=== PATIENT | male | born 1975 | race Caucasian/White ===

== ENCOUNTER 2021-08-23 11:03 | Emergency (ER) | payer MEDICAID, SELFPAY ==
[2021-08-23 11:05] VITALS: BP 147/103; PULSE 76; RESP 16; TEMP 36.6; O2SAT 76; BMI 23.6
--- NOTE | 2021-08-23 11:42 | CT_ITS ---
STUDY: CT BRAIN WITHOUT CONTRAST REASON FOR EXAM: Male, 46 years old. headache RADIATION DOSAGE (If Supplied By Facility): CTDIvol = ( 44.99 ) mGy, DLP = ( 812.98 ) mGycm TECHNIQUE: Transaxial CT imaging of the brain was performed without administration of intravenous contrast material. Individualized dose optimization techniques were used for this CT. COMPARISON: No relevant priors. FINDINGS: Normal soft tissue structures. Normal calvarium. Normal size ventricles and extra-axial spaces for the patient''s age. Normal white matter tracts of the cerebral hemispheres. Normal basal ganglia and thalami. Normal brainstem. Normal cerebellum. There is no intracranial hemorrhage. There are no findings of an acute ischemic infarction. Normal visualized paranasal sinuses. CT/Brain/Head without Contrast IMPRESSION: Normal unenhanced CT scan of the brain. Electronically Signed: Cody Martinez MD at 12:51 EST Tel , Service support ,
--- NOTE | 2021-08-23 11:42 | RAD_ITS ---
STUDY: X-RAY - FACIAL BONES REASON FOR STUDY: Male, 46 years old. facial pain TECHNIQUE: 3 view(s) of the facial bones. COMPARISON: None. FINDINGS: Normal bilateral frontozygomatic and zygomatic-temporal arches. Normal bilateral medial and inferior orbital cunningham. Normal bilateral orbits. Normal visualized nasal bones. Normal anterior nasal spine. The remaining visualized osseous structures are normal. Normal visualized paranasal sinuses. RAD/Facial Bones min 3 Views IMPRESSION: Normal x-ray examination of the facial bones. Electronically Signed: Cody Martinez MD at 12:44 EST Tel , Service support ,
--- NOTE | 2021-08-23 11:42 | CT_ITS ---
STUDY: CT CERVICAL SPINE WITHOUT CONTRAST REASON FOR EXAM: Male, 46 years old. neck pain RADIATION DOSAGE (If Supplied By Facility): CTDIvol = ( 25.25 ) mGy, DLP = ( 525.02 ) mGycm TECHNIQUE: High resolution transaxial imaging was performed without contrast material. Sagittal and coronal images were reconstructed. Individualized dose optimization techniques were used for this CT. COMPARISON: None FINDINGS: Normal craniovertebral junction. Normal anterior atlantoaxial articulation. Normal odontoid process. Normal cervical lordosis. Normal vertebral bodies and posterior osseous elements. C2-3: Normal endplates. Normal disc height and morphology. Normal central canal and intervertebral neuroforamina. C3-4: Normal endplates. Normal disc height and morphology. Normal central canal and intervertebral neuroforamina. C4-5: Normal endplates. Normal disc height and morphology. Normal central canal and intervertebral neuroforamina. C5-6: Normal endplates. Normal disc height and morphology. Normal central canal and intervertebral neuroforamina. C6-7: Mild broad disc osteophyte complex and bilateral vertebral hypertrophy produces mild spinal stenosis and moderate bilateral neural foraminal stenosis. C7-T1: Normal endplates. Normal disc height and morphology. Normal central canal and intervertebral neuroforamina. Normal visualized soft tissue structures. CT/Spine Cervical without Contras IMPRESSION: Focal degenerative disc disease at C6-C7 as described above. Electronically Signed: Cody Martinez MD at 12:54 EST Tel , Service support ,
--- NOTE | 2021-08-23 11:42 | RAD_ITS ---
STUDY: X-RAY CHEST REASON FOR EXAM: Male, 46 years old. fatigue TECHNIQUE: Single AP portable view of the chest. COMPARISON: None. FINDINGS: The lungs are clear and expanded. There is no demonstrated pleural abnormality. Normal size heart. Normal mediastinum and leela. Normal visualized pulmonary arteries. Normal visualized aortic arch and descending thoracic aorta. Normal visualized thoracic spine. Normal visualized ribs, clavicles, and shoulders. There is no demonstrated abnormality of the visualized soft tissue structures of the upper abdomen. RAD/Chest 1 View (Portable) IMPRESSION: Normal x-ray examination of the chest. Electronically Signed: Cody Martinez MD at 12:33 EST Tel , Service support ,
--- NOTE | 2021-08-23 11:43 | EKG12_ITS ---
Test Reason : Blood Pressure : / mmHG Vent. Rate : 065 BPM Atrial Rate : 065 BPM P-R Int : 122 ms QRS Dur : 092 ms QT Int : 396 ms P-R-T Axes : 008 036 027 degrees QTc Int : 411 ms Normal sinus rhythm Normal ECG Confirmed by TESSA ASIF, RANDI ([id number]), editor & co founder ROMARIO VALERO ([id number]) on 08/24/2021 1:05:31 PM Referred By: NAYELI Confirmed By:RANDI ZARATE MD
--- NOTE | 2021-08-23 11:46 | EDS_ITS ---
HPI History of Present Illness Chief Complaint: Headache Narrative Narrative: 46-year-old male with history of Graves' disease currently not taking his methimazole for about 4 to 5 months. Patient states that he had very high thyroid levels when he started. He states that the methimazole taste like poison going down and he does not want to take it because it makes him sick. He reports that over the last 4 to 5 months he has noticed that his right eye feels irritated and is watering more frequently. He states that this drains into his right nostril and his right nostril is constantly draining. Patient also states that he has a headache which feels like pressure throughout his head but also focally behind his right eye. He reports that it feels like he hears ticking in his ears. Patient feels like the pressure radiates into his neck. Patient states that he has been taking cold medicine with Tylenol and it as well as taking supplemental doses of Tylenol and has been probably taking more than recommended dosage. He is also taking more than recommend dosage of ibuprofen which is upsetting his stomach. [facility] Medical History (Updated 08/23/21 @ 11:15 by Sunday Jack) Graves disease Hyperthyroidism Allergy/AdvReac Type Severity Reaction Status Date / Time sertraline [From Zoloft] Allergy Hives Verified 08/23/21 11:05 Social History Smoking Status: Current every day smoker tobacco type: e-cigarettes and smokeless tobacco ROS ROS ED Constitutional Constitutional ED: Denies chills or fever(s) Eyes Eyes: Reports other Details: Right eye watering right nostril rhinorrhea ; Denies blurry vision ENT ENT ED: Reports rhinorrhea; Denies sore throat Cardiovascular Cardiovascular: Denies chest pain or palpitations Respiratory/Chest Respiratory/Chest: Denies cough or dyspnea Gastrointestinal Gastrointestinal: Reports abdominal pain; Denies nausea or vomiting Genitourinary Genitourinary ED: Denies dysuria or hematuria Musculoskeletal Musculoskeletal: Denies arthralgias or myalgias Integumentary Denies rash Neurologic Neurologic: Reports headache(s); Denies paresthesias or weakness EXAM Physical Exam Const Vital Signs: 08/23/21 11:05 08/23/21 13:35 Temperature 97.9 F 98.4 F Temperature Source Temporal Pulse Rate 76 68 Respiratory Rate 16 16 Blood Pressure 147/103 H 135/72 H Blood Pressure Mean 117 Pulse Ox 76 97 Oxygen Delivery Method Room Air Positive well nourished General Appearance ED: NAD; Negative for pallor HEENT Reports normocephalic and moist mucous membranes atraumatic Eyes PERRL and EOMs intact bilaterally Resp normal respiratory effort and clear to auscultation bilaterally Cardio regular rate and regular rhythm Extremity normal to inspection and full ROM Neuro oriented x3, CN's II-XII intact bilaterally and no sensory deficits noted Sensorium / Orientation: awake and alert Motor Exam: strength 5/5 throughout Psych mental status grossly normal Skin General Skin Exam: Negative for jaundice or pallor MDM MDM MDM Narrative Medical decision making narrative: Patient presenting for evaluation after he has not taken his methimazole for the last 6 months secondary to not liking the taste of the medication and stating it tasted like poison. He states he was told by a friend who is a nurse that he might be in thyroid storm. I have a low suspicion for this based on his vitals and his heart rate is 76. His main complaint is of headache and neck pain as well as right eye watering and causing rhinorrhea to the right nostril. Patient also does state that he has some GI discomfort because he is been taking so much ibuprofen which is upset his stomach. He is also taking Tylenol which he is concerned he took too much of it. I did obtain blood work and his CBC is normal. CMP is also normal. Lipase negative. TSH was low at 0.01. Free T4 was 1.29 and free T3 is 4.4. The only elevation is the T3 and this is only mildly elevated. Salicylates were normal. Acetaminophen level was low. Urinalysis performed which was negative. I obtained an EKG which on my interpretation shows a sinus rhythm with a ventricular rate of 65 bpm without sign of ischemic change. Chest x-ray on my interpretation shows no acute cardiopulmonary process and the radiologist does agree. CT of the brain shows no acute intracranial process and a CT of the cervical spine shows degenerative changes at C6 and C7 without any other acute findings. Overall his work-up is normal and his thyroid is not that elevated. I do not believe he needs admitted or further work-up from the emergency room. He is counseled to follow-up with the primary care physician although he states that he does not have one any longer. He was given referral for primary care and he was also given Dr. Issa for follow-up for endocrinology. I also did recommend that since he has an ongoing eye watering problem without any sign of acute infection that he should follow-up with ophthalmology. Patient was amenable to this plan. He is discharged in stable condition. Impression: 1. Headache 2. Neck pain 3. History of Graves' disease 4. Abdominal pain 5. Right eye watering Lab Data Labs: Laboratory Results - last 24 hr 08/23/21 08/23/21 08/23/21 11:32 11:32 11:32 WBC 8.7 RBC 4.31 L Hgb 13.7 Hct 40.5 MCV 94.0 MCH 31.8 MCHC 33.8 RDW Std Deviation 43.0 RDW Coeff of Olive 12.4 Plt Count 268 MPV 9.0 Immature Gran % (Auto) 0.300 Neut % (Auto) 67.0 Lymph % (Auto) 22.4 [place] % (Auto) 6.9 Eos % (Auto) 2.6 Baso % (Auto) 0.8 Absolute Neuts (auto) 5.8 Absolute Lymphs (auto) 1.95 Nucleated RBC % 0 Sodium 140 Potassium 4.2 Chloride 104 Carbon Dioxide 30.0 Anion Gap 6 BUN 13 Creatinine 0.94 Estim Creat Clear Calc 95.00 Est GFR (MDRD) Af Amer 111 Est GFR (MDRD) Non-Af 92 BUN/Creatinine Ratio 13.8 Glucose 100 Calcium 9.0 Total Bilirubin 0.20 Direct Bilirubin 0.06 AST 10 L ALT 21 Alkaline Phosphatase 56 Troponin I High Sens 5 Total Protein 7.1 Albumin 3.5 Globulin 3.6 Albumin/Globulin Ratio 1.0 Lipase 134 TSH < 0.01 L Free T4 1.29 Free T3 pg/dL 4.4 H Urine Color Urine Clarity Urine pH Ur Specific [place] Urine Protein Urine Glucose (UA) Urine Ketones Urine Occult Blood Urine Nitrite Urine Bilirubin Urine Urobilinogen Ur Leukocyte Esterase Urine RBC Urine WBC Ur Squamous Epith Cells Urine Bacteria Urine Mucus Salicylates < 1.7 L Acetaminophen 4.1 L 08/23/21 12:00 WBC RBC Hgb Hct MCV MCH MCHC RDW Std Deviation RDW Coeff of [place] Plt Count MPV Immature Gran % (Auto) Neut % (Auto) Lymph % (Auto) [place] % (Auto) Eos % (Auto) Baso % (Auto) Absolute Neuts (auto) Absolute Lymphs (auto) Nucleated RBC % Sodium Potassium Chloride Carbon Dioxide Anion Gap BUN Creatinine Estim Creat Clear Calc Est GFR (MDRD) Af Amer Est GFR (MDRD) Non-Af BUN/Creatinine Ratio Glucose Calcium Total Bilirubin Direct Bilirubin AST ALT Alkaline Phosphatase Troponin I High Sens Total Protein Albumin Globulin Albumin/Globulin Ratio Lipase TSH Free T4 Free T3 pg/dL Urine Color Yellow Urine Clarity Clear Urine pH 7.0 Ur Specific [place] 1.010 Urine Protein Negative Urine Glucose (UA) Normal Urine Ketones Negative Urine Occult Blood Negative Urine Nitrite Negative Urine Bilirubin Negative Urine Urobilinogen Normal Ur Leukocyte Esterase Negative Urine RBC 0 SEEN Urine WBC 0 SEEN Ur Squamous Epith Cells 0 SEEN Urine Bacteria 0 SEEN Urine Mucus 0 SEEN Salicylates Acetaminophen Radiography Diagnostic Testing: Clinical Impression(s) from Imaging Studies Brain CT 08/23/21 11:42 IMPRESSION: Normal unenhanced CT scan of the brain. Electronically Signed: Cody Martinez MD at 12:51 EST Tel , Service support , Cervical Spine CT 08/23/21 11:42 IMPRESSION: Focal degenerative disc disease at C6-C7 as described above. Electronically Signed: Cody Martinez MD at 12:54 EST Tel , Service support , Chest X-Ray 08/23/21 11:42 IMPRESSION: Normal x-ray examination of the chest. Electronically Signed: Cody Martinez MD at 12:33 EST Tel , Service support , Facial Bones X-Ray 08/23/21 11:42 IMPRESSION: Normal x-ray examination of the facial bones. Electronically Signed: Cody Martinez MD at 12:44 EST Tel , Service support , Discharge Plan Triage Chief Complaint: Headache ED Provider: Lavon Asher Dx/Rx/DC Orders Instructions: Understanding Headache Pain, ED Hyperthyroidism Primary Care Provider: Care Physician,No Primary Referrals: Kiki Marte MD [STAFF PHYSICIAN] - As soon as possible Todd Issa MD [STAFF PHYSICIAN] - As soon as possible Care Physician,No Primary [Primary Care Provider] - Disposition Disposition: Home, Self Care Discharge Date/Time: 08/23/21 13:35
[2021-08-23 11:53] LABS: Absolute Lymphocyte Count 1.95 X10^3/uL (0.83-4.51); Absolute Neutrophil Count 5.8 X10^3/uL (2.0-7.7); Basophil# 0.07 X10^3/uL; Basophil% 0.8 % (0-1); Eosinophil# 0.23 X10^3/uL; Eosinophils% 2.6 % (0-5); Hematocrit 40.5 % (40-54); Hemoglobin 13.7 g/dL (13.0-16.5); Lymphocyte # 1.95 X10^3/ul (0.83-4.51); Lymphocyte % 22.4 % (19-41); Mean Corp Hgb Conc 33.8 g/dL (32-36); Mean Corpuscular Hgb 31.8 pg (27.0-32.0); Monocyte% 6.9 % (0-10); NRBC Flagged by Analyzer 0 % (0-5); Neutrophil # 5.84 X10^3/uL (2.7-7.7); Platelet Count 268 K/mm3 (150-450); RBC Distribution Width CV 12.4 % (11.6-14.6); Red Blood Count 4.31 M/mm3 (4.6-6.2); White Blood Count 8.7 K/mm3 (4.4-11.0)
[2021-08-23] MEDS: DiphenhydrAMINE 50 MG/ML Syringe 25 MG IV (11:57)
[2021-08-23] MEDS: Metoclopramide 10 MG/2 ML Vial IV (11:57)
[2021-08-23] MEDS: 0.9% Normal Saline 1,000 ML 1000 ML IV (11:57)
[2021-08-23 12:09] LABS: Bacteria 0 SEEN /hpf (None Seen); Mucous, Urine 0 SEEN /hpf (<or=2+); Red Blood Cells-Urine 0 SEEN /hpf (0-5); Squamous Epithelial Cells - UA 0 SEEN /hpf (0-5); White Blood Cells 0 SEEN /hpf (0-5)
[2021-08-23 12:15] LABS: Acetaminophen (Tylenol) Level 4.1 ug/mL (10.0-30.0); Salicylate < 1.7 mg/dL (2.8-20.0)
[2021-08-23 12:18] LABS: AST(SGOT) 10 U/L (15-37); Alanine Aminotransfer ALT/SGPT 21 U/L (16-61); Albumin, Serum 3.5 g/dL (3.2-5.0); Alkaline Phosphatase 56 U/L (45-117); Anion Gap 6 (5-15); BUN 13 mg/dL (7-18); BUN/Creat Ratio 13.8 RATIO (10-20); Bilirubin, Direct 0.06 mg/dL (0.00-0.30); Chloride 104 mmol/L (98-107); Creatinine, Serum 0.94 mg/dL (0.70-1.30); EST Glomerular Filtration Rate 92 mL/min (>60); Est Glom Filt Rate - Afr Amer 111 mL/min (>60); Free T3 4.4 pg/mL (2.18-3.98); Globulin 3.6 g/dL (2.2-4.2); Glucose 100 mg/dL (74-106); Lipase 134 U/L (73-393); Potassium 4.2 mmol/L (3.5-5.1); Protein, Total 7.1 g/dL (6.4-8.2); Sodium Level 140 mmol/L (136-145); T4 Free Direct 1.29 ng/dL (0.76-1.46); Thyroid Stim Hormone (TSH) < 0.01 uIU/mL (0.358-3.74); Troponin-I HS 5 pg/mL (3.0-78.0)
[2021-08-23 12:27] LABS: Color, Urine Yellow (Yellow); Glucose, Dipstick Normal (Normal); Ketone-Dipstick Negative (Negative); Leukocyte Esterase-Dipstick Negative /ul (Negative); Nitrite-Dipstick Negative (Negative); Occult Blood-Urine Negative /ul (Negative); Protein-Dipstick Negative (Negative); Urine Bilirubin Dipstick Negative (Negative); Urine Clarity Clear (Clear); Urine Urobilinogen Normal (Normal)
[2021-08-23] MEDS: Ketorolac 15 MG/ML Vial IV (13:32)
[2021-08-23 13:35] VITALS: BP 135/72; PULSE 68; RESP 16; TEMP 36.9; O2SAT 97
== END 2021-08-23 13:35 | disposition home or self-care (01) ==
PROVIDERS: Emergency Provider Student in an Organized Health Care Education/Training Program; Visit Provider Student in an Organized Health Care Education/Training Program
DX: R51.9 Headache, unspecified (principal); R10.9 Unspecified abdominal pain; J34.89 Other specified disorders of nose and nasal sinuses; H57.89 Other specified disorders of eye and adnexa; M54.2 Cervicalgia; E05.00 Thyrotoxicosis with diffuse goiter without thyrotoxic crisis or storm; Z91.14 Patient's other noncompliance with medication regimen; F17.290 Nicotine dependence, other tobacco product, uncomplicated
CPT/HCPCS: 70150; 70450; 71045; 72125; 80053; 80329; 81001; 82248; 83690; 84439; 84443; 84481; 84484; 85025; 87426; 93005; 96361; 96374; 96375; 99283; J7030; A4216; G0480

== ENCOUNTER 2023-08-02 18:47 | Inpatient (IN) | payer MEDICAID, SELFPAY ==
[2023-08-02 18:50] VITALS: BP 140/114; PULSE 83; RESP 18; TEMP 36.5; O2SAT 98; BMI 25.8
[2023-08-02 19:10] VITALS: BP 125/87; PULSE 67; RESP 16; TEMP 36.9; O2SAT 97
[2023-08-02 19:12] VITALS: BP 125/87; PULSE 66; RESP 14; TEMP 36.9; O2SAT 99
[2023-08-02 19:18] LABS: Absolute Lymphocyte Count 1.52 X10^3/uL (0.83-4.51); Absolute Neutrophil Count 4.5 X10^3/uL (2.0-7.7); Basophil# 0.05 X10^3/uL; Basophil% 0.8 % (0-1); Eosinophil# 0.03 X10^3/uL; Eosinophils% 0.5 % (0-5); Hematocrit 42.8 % (40-54); Hemoglobin 14.9 g/dL (13.0-16.5); Lymphocyte # 1.52 X10^3/ul (0.83-4.51); Lymphocyte % 23.2 % (19-41); Mean Corp Hgb Conc 34.8 g/dL (32-36); Mean Corpuscular Hgb 33.5 pg (27.0-32.0); Mean Corpuscular Volume 96.2 fL (80-94); Mean Platelet Vol. 9.2 fl (6.2-12.0); Monocyte# 0.42 X10^3/uL; Monocyte% 6.4 % (0-10); NRBC Flagged by Analyzer 0 % (0-5); Neutrophil # 4.51 X10^3/uL (2.7-7.7); Neutrophil % 68.8 % (47-70); Platelet Count 258 K/mm3 (150-450); RBC Distribution Width CV 12.3 % (11.6-14.6); RBC Distribution Width SD 43.6 fl (35.1-43.9); Red Blood Count 4.45 M/mm3 (4.6-6.2); White Blood Count 6.6 K/mm3 (4.4-11.0)
[2023-08-02 19:31] LABS: Bedside Glucose 169 mg/dL (74-106)
--- NOTE | 2023-08-02 19:33 | CT_ITS ---
EXAM: CT brain without contrast HISTORY: Trauma TECHNIQUE: No intravenous contrast. A radiation dose optimization technique was used for this scan. COMPARISON: Head CT August 23, 2021. LIMITATIONS: None. BRAIN: Normal tomlinson/white matter differentiation. VENTRICLES: No hydrocephalus. EXTRA-AXIAL SPACES: No acute hemorrhage. CALVARIUM/SKULL BASE: No acute fracture. FACE/SINUSES: Old fracture of the right orbit. SOFT TISSUES: Contusion of the right frontal scalp. OTHER: None. CONCLUSION: No acute intracranial abnormality. Electronically Signed: Adriel Evans MD at 21:00 EST , CT/Brain/Head without Contrast IMPRESSION: undefined
--- NOTE | 2023-08-02 19:35 | EKG12_ITS ---
Test Reason : DYSRHYTHMIA Blood Pressure : / mmHG Vent. Rate : 063 BPM Atrial Rate : 063 BPM P-R Int : 120 ms QRS Dur : 070 ms QT Int : 414 ms P-R-T Axes : 023 023 015 degrees QTc Int : 423 ms Normal sinus rhythm Junctional ST depression, probably abnormal Abnormal ECG Confirmed by TESSA ASIF, RANDI ([id number]), material expeditor RANDY CRAMER ([id number]) on 08/09/2023 8:17:43 AM Referred By: Confirmed By:RANDI ZARATE MD
[2023-08-02 19:36] LABS: Alcohol, Blood (Medical)-Serum < 3.0 mg/dL
--- NOTE | 2023-08-02 19:36 | EDS_ITS ---
HPI History of Present Illness Chief Complaint: Substance Abuse Narrative Narrative: 38-year-old male presents for detox from alcohol and benzodiazepines. He states he has past medical history of depression and anxiety and was taking up to 4 mg or more of benzodiazepines/Ativan. He last used on Tuesday. Additionally, he states his last drink was also on Tuesday. He would have at least 6-8 mixed drinks a day. He last went through rehab over a year ago, but never here at the hospital. He was at an outside facility in [facility] where they told him to come here for detox. He states that he is actively withdrawing, and when he was here, he went to the bathroom, then passed out suddenly. He sustained a laceration to his forehead. He states his tetanus immunization is up-to-date. He denies other injury. He presents for detox from alcohol and benzodiazepines. [facility] Medical History Graves disease Hyperthyroidism Allergy/AdvReac Type Severity Reaction Status Date / Time sertraline [From Zoloft] Allergy Hives Verified 08/02/23 18:50 Social History Smoking Status: Current every day smoker tobacco type: e-cigarettes and smokeless tobacco ROS ROS ED ROS Narrative Constitutional: No fever, no chills. HEENT: No sore throat. No neck pain. No loss of vision. No rhinorrhea. Laceration to forehead. Cardiovascular: No chest pain. No palpitations. No pedal edema. Respiratory: No cough, no shortness of breath. Abdominal: No abdominal pain. No nausea. No vomiting. Genitourinary: No dysuria. No hematuria. Musculoskeletal: No myalgias. No arthralgias. Neurologic: No headaches. No dizziness. No lightheadedness. Syncopal episode. Skin: No rash. No change in color. Psychiatric: Positive depression. No anxiety. EXAM Physical Exam Narrative Exam Narrative: Afebrile. Vital signs noted. GCS 15. ABCs intact. HEENT: Normocephalic. 1 cm laceration to mid forehead, irregular body close linear, no gaping, no active bleeding. PERRL, EOMI. Neck soft and supple. No point tenderness or step off. Cardiovascular: Regular rate and rhythm. No murmurs, rubs, or gallops appreciated. Respiratory: No tachypnea. Lungs clear to auscultation bilaterally. Gastrointestinal: Abdomen soft, nontender, with normoactive bowel sounds. No rebound or guarding. Neurological: Awake. Alert. Oriented. Able to raise arms above head without difficulty. Nonfocal, nonlateralizing. Skin: No rash. Normal color. No pallor. No tremors. No gooseflesh. Musculoskeletal: No pedal edema. Full range of motion extremities. Const Vital Signs: 08/02/23 18:50 08/02/23 19:10 08/02/23 19:12 Temperature 97.7 F L 98.4 F 98.4 F Temperature Source Temporal Oral Oral Pulse Rate 83 67 66 Respiratory Rate 18 16 14 Blood Pressure 140/114 H 125/87 H 125/87 H Blood Pressure Mean 122 99 99 Blood Pressure Source Monitor Blood Pressure Position Semi-Fowlers Blood Pressure Location Left Arm Pulse Ox 98 97 99 Oxygen Delivery Method Room Air Room Air Room Air MDM MDM MDM Narrative Medical decision making narrative: Nursing protocol orders were instituted for medical clearance for detox. [id number] glucose is appropriately elevated at 169. As he injured his head, his wound will be cleansed and Steri-Strips were applied as per his preference. Additionally, I do feel CT imaging is indicated given his closed head injury. EKG will be obtained for his syncopal episode. EKG was obtained and interpreted by myself independently as normal sinus rhythm at 63 bpm without ectopy or acute ST changes. No STEMI. QTc normal at 423 ms. I reviewed his laboratory work and he has a normal white count of 6.6, hemoglobin normal at 14.9, hematocrit 42.8 with platelet count normal at 258. Glucose is appropriately elevated at 141, with a normal anion gap of 8. Urine for drugs of abuse is negative. Ethanol level is also negative. There are no current signs of active withdrawal but the patient states he feels shaky. He is not tachycardic. I reviewed the CT imaging of the brain which shows no acute fracture or hemorrhage. At this point in time, his wound will be cleansed and Steri-Strips applied. I discussed the patient with Dr. Mendoza with hospitalist medicine for admission. I have deferred phenobarbital to the hospitalist. I do not feel Ativan is indicated as he is trying to wean himself off of them and wants detox from benzodiazepines, and additionally he had a closed head injury initially. Disposition is admit in stable condition. History & Record Review Discussion w/independent historian: Patient Additional record(s) reviewed:: Prior ED visit (Noncontributory to current chief complaint) Lab Data Attestation: I reviewed the patient's lab results. Labs: Laboratory Results - last 24 hr 08/02/23 08/02/23 08/02/23 19:10 19:12 19:46 WBC 6.6 RBC 4.45 L Hgb 14.9 Hct 42.8 MCV 96.2 H MCH 33.5 H MCHC 34.8 RDW Std Deviation 43.6 RDW Coeff of Olive 12.3 Plt Count 258 MPV 9.2 Immature Gran % (Auto) 0.300 Neut % (Auto) 68.8 Lymph % (Auto) 23.2 [place] % (Auto) 6.4 Eos % (Auto) 0.5 Baso % (Auto) 0.8 Absolute Neuts (auto) 4.5 Absolute Lymphs (auto) 1.52 Nucleated RBC % 0 Sodium 135 L Potassium 3.9 Chloride 103 Carbon Dioxide 24.0 Anion Gap 8 BUN 8 Creatinine 1.03 Estim Creat Clear Calc 84.85 Est GFR (MDRD) Af Amer 99 Est GFR (MDRD) Non-Af 82 BUN/Creatinine Ratio 7.8 L Glucose 141 H Calcium 9.5 Urine Opiates Screen NEGATIVE Urine Methadone Screen NEGATIVE Ur Barbiturates Screen NEGATIVE Ur Phencyclidine Scrn NEGATIVE Ur Amphetamines Screen NEGATIVE MDMA (Ecstasy) Screen NEGATIVE U Benzodiazepines Scrn NEGATIVE Urine Cocaine Screen NEGATIVE U Cannabinoids Screen NEGATIVE Ur Drug Screen Comment Ethyl Alcohol < 3.0 POC Glucose 169 H Radiography Diagnostic Testing: Clinical Impression(s) from Imaging Studies Brain CT 08/02/23 19:33 IMPRESSION: undefined Discharge Plan Dx/Rx/DC Orders Clinical Impression: Desire for detoxification, Syncope, Forehead laceration, Alcohol withdrawal Disposition Disposition: Acute Care [facility]
[2023-08-02 19:38] LABS: Anion Gap 8 (5-15); BUN 8 mg/dL (7-18); BUN/Creat Ratio 7.8 RATIO (10-20); Calcium,Total 9.5 mg/dL (8.5-10.1); Chloride 103 mmol/L (98-107); Creatinine, Serum 1.03 mg/dL (0.70-1.30); EST Glomerular Filtration Rate 82 mL/min (>60); Est Glom Filt Rate - Afr Amer 99 mL/min (>60); Estimated Creatinine Clearance 84.85 ml/min; Glucose 141 mg/dL (74-106); Potassium 3.9 mmol/L (3.5-5.1); Sodium Level 135 mmol/L (136-145)
[2023-08-02 20:16] LABS: Amphetamine Urine VISTA NEGATIVE (<1000 ng/mL); Barbiturate Urine VISTA NEGATIVE (< 200 ng/mL); Benzodiazepine Urine VISTA NEGATIVE (< 200 ng/mL); Cocaine Urine VISTA NEGATIVE (< 300 ng/mL); Ecstacy Urine VISTA NEGATIVE (< 500 ng/mL); Methadone Urine VISTA NEGATIVE (< 300 ng/mL); PCP Urine VISTA NEGATIVE (< 25 ng/mL); THC Urine VISTA NEGATIVE (< 50 ng/mL); Vista UDS pH Range 6
[2023-08-02 21:34] VITALS: BP 137/95; PULSE 69; RESP 16; O2SAT 95
[2023-08-02 22:48] VITALS: BMI 25.1
[2023-08-02 22:52] VITALS: BP 137/89; PULSE 68; RESP 16; TEMP 36.5; O2SAT 98
[2023-08-02] MEDS: Ondansetron 8 MG Tablet PO (23:10)
[2023-08-02] MEDS: Phenobarbital 32.4 MG Tablet 64.7999999999999972 MG PO (23:10)
[2023-08-02] MEDS: Gabapentin 300 MG Capsule PO (23:10)
--- NOTE | 2023-08-03 00:11 | PCM.HP.STD ---
HPI - General General Date of Admission: 08/02/23 Date of Service: 08/02/23 Chief Complaint: Alcohol withdrawal HPI Narrative NIALL AMIN, is a 48 M who presents to the ED for inpatient detoxification for alcohol use disorder and benzodiazepine use addiction. He drinks about 6 to 7 glasses of vodka daily and about 4 mg of ativan daily. He was previously involved in using other drugs like adderal but has been abstinent for the last year. His last drink was 2-3 days back and he is having significant cravings. Occasional tremor s and sweating is present but no other symptoms. He had one episode of black out in the restroom and suffered a head laceration due to the fall. [facility] Medical History Graves disease Hyperthyroidism Home Medications paroxetine HCl 20 mg tablet 20 mg PO QHS 08/02/23 [History Last Taken Unknown] quetiapine 50 mg tablet 50 mg PO QHS 08/02/23 [History Last Taken Unknown] Allergy/AdvReac Type Severity Reaction Status Date / Time sertraline [From Zoloft] Allergy Hives Verified 08/02/23 18:50 Social History Smoking Status: Current every day smoker tobacco type: e-cigarettes and smokeless tobacco ROS Constitutional Constitutional: Reports fatigue Cardiovascular Cardiovascular: Denies chest pain, claudication, dyspnea on exertion, edema, lightheadedness, orthopnea, palpitations, paroxysmal nocturnal dyspnea, rapid heart rate, syncope or other Respiratory/Chest Respiratory/Chest: Denies cough, dyspnea, excessive phlegm production, hemoptysis, productive cough, shortness of breath at rest, shortness of breath with exertion, wheezing or other Gastrointestinal Gastrointestinal: Denies abdominal pain, coffee ground emesis, constipation, diarrhea, dyspepsia, hematemesis, hematochezia, loose stools, melena, nausea, vomiting or other Genitourinary Genitourinary: Denies burning urination, difficulty urinating, dysuria, hematuria, nocturia, urinary frequency, urinary hesitancy, urinary incontinence, urinary urgency or other Musculoskeletal Musculoskeletal: Denies arthralgias, back pain, joint pain, joint stiffness, joint swelling, myalgias, neck pain or other Neurologic Neurologic: Denies abnormal gait, abnormal speech, confusion, disequilibrium, dizziness, focal weakness, headache(s), numbness, paresthesias, seizure-like activity, seizures, syncope, tingling, tremor(s) or other Vital Signs Vital Signs Vital Signs: 08/02/23 18:50 08/02/23 19:10 08/02/23 19:12 Temperature 97.7 F L 98.4 F 98.4 F Temperature Source Temporal Oral Oral Pulse Rate 83 67 66 Respiratory Rate 18 16 14 Respiratory Effort Respiratory Depth Respiratory Pattern Blood Pressure 140/114 H 125/87 H 125/87 H Blood Pressure Mean 122 99 99 Blood Pressure Source Monitor Blood Pressure Position Semi-Fowlers Blood Pressure Location Left Arm Pulse Ox 98 97 99 Oxygen Delivery Method Room Air Room Air Room Air 08/02/23 21:34 08/02/23 22:52 08/02/23 22:48 Temperature 97.7 F L Temperature Source Temporal Pulse Rate 69 68 Respiratory Rate 16 16 Respiratory Effort Normal Non-Labored Respiratory Depth Normal Respiratory Pattern Normal Blood Pressure 137/95 H 137/89 H Blood Pressure Mean 109 105 Blood Pressure Source Monitor Blood Pressure Position Semi-Fowlers Blood Pressure Location Right Arm Pulse Ox 95 98 Oxygen Delivery Method Room Air Room Air Room Air Weight Weight: 165 lb 5.547 oz Body Mass Index (BMI) 25.1 Physical Exam Const alert and oriented x3 General Appearance: cooperative HEENT normocephalic Resp normal respiratory effort Cardio regular rate GI normal to inspection, nondistended, normoactive bowel sounds Extremity normal to inspection Neuro oriented x3 Results Medical Records Data Attestation: I reviewed the patient's medical records Lab / Micro Data Attestation: I reviewed the patient's lab results. 08/02/23 19:10 08/02/23 19:10 Labs: Laboratory Results - last 24 hr 08/02/23 19:10: WBC 6.6, RBC 4.45 L, Hgb 14.9, Hct 42.8, MCV 96.2 H, MCH 33.5 H, MCHC 34.8, RDW Std Deviation 43.6, RDW Coeff of Olive 12.3, Plt Count 258, MPV 9.2, Immature Gran % (Auto) 0.300, Neut % (Auto) 68.8, Lymph % (Auto) 23.2, [place] % (Auto) 6.4, Eos % (Auto) 0.5, Baso % (Auto) 0.8, Absolute Neuts (auto) 4.5, Absolute Lymphs (auto) 1.52, Nucleated RBC % 0, Sodium 135 L, Potassium 3.9, Chloride 103, Carbon Dioxide 24.0, Anion Gap 8, BUN 8, Creatinine 1.03, Estim Creat Clear Calc 84.85, Est GFR (MDRD) Af Amer 99, Est GFR (MDRD) Non-Af 82, BUN/Creatinine Ratio 7.8 L, Glucose 141 H, Calcium 9.5, Ethyl Alcohol < 3.0 08/02/23 19:12: POC Glucose 169 H 08/02/23 19:46: Urine Opiates Screen NEGATIVE, Urine Methadone Screen NEGATIVE, Ur Barbiturates Screen NEGATIVE, Ur Phencyclidine Scrn NEGATIVE, Ur Amphetamines Screen NEGATIVE, MDMA (Ecstasy) Screen NEGATIVE, U Benzodiazepines Scrn NEGATIVE, Urine Cocaine Screen NEGATIVE, U Cannabinoids Screen NEGATIVE, Ur Drug Screen Comment Micro: Microbiology 08/02/23 19:40 Nasal Secretion SARS-CoV-2 Antigen (Rapid) - Final Imagaing Radiology Impression Brain CT 08/02/23 19:33 IMPRESSION: undefined Assessment & Plan Assessment/Plan (1) Alcohol withdrawal: PLAN: Plan Mr Amin, 48 year old male presents for inpatient alcohol detoxification. There are no acute features of withdrawal at present. No tachycardia 1. Alcohol, BZD withdrawal: - We will manage his symptoms as per the [facility] protocol - photofinishing laboratory worker consult to provide resources after discharge - IV thiamine and folic acid supplementation - Nutrition consult 2. Recurrent falls - PT/ OT consult - There are no features of Wernicke's encephalopathy Charges/Coding Visit Charges Inpatient E&M: 64656 Init Hosp L2
[2023-08-03] MEDS: Acetaminophen 500 MG Tablet 1000 MG PO ×3 (00:49→17:52)
[2023-08-03] MEDS: traZODone 100 MG Tablet PO (00:49)
[2023-08-03 02:13] VITALS: BP 100/60; PULSE 75; RESP 16; TEMP 36.6; O2SAT 96
[2023-08-03] MEDS: Dicyclomine 10 MG Capsule 20 MG PO (02:16)
[2023-08-03] MEDS: hydrOXYzine PAM 25 MG Capsule 50 MG PO ×2 (02:16→22:12)
[2023-08-03] MEDS: Phenobarbital 32.4 MG Tablet 64.7999999999999972 MG PO ×6 (02:16→22:12)
[2023-08-03] MEDS: 0.9% Saline Lock 10 ML Syringe IV ×2 (06:37→22:18)
[2023-08-03 07:23] LABS: Absolute Lymphocyte Count 2.42 X10^3/uL (0.83-4.51); Absolute Neutrophil Count 2.6 X10^3/uL (2.0-7.7); Basophil# 0.06 X10^3/uL; Basophil% 1.1 % (0-1); Eosinophil# 0.08 X10^3/uL; Eosinophils% 1.4 % (0-5); Hematocrit 39.5 % (40-54); Hemoglobin 13.4 g/dL (13.0-16.5); Lymphocyte # 2.42 X10^3/ul (0.83-4.51); Lymphocyte % 42.8 % (19-41); Mean Corp Hgb Conc 33.9 g/dL (32-36); Mean Corpuscular Hgb 33.7 pg (27.0-32.0); Mean Corpuscular Volume 99.2 fL (80-94); Monocyte# 0.49 X10^3/uL; Monocyte% 8.7 % (0-10); NRBC Flagged by Analyzer 0 % (0-5); Neutrophil # 2.58 X10^3/uL (2.7-7.7); Neutrophil % 45.6 % (47-70); Platelet Count 246 K/mm3 (150-450); RBC Distribution Width CV 12.5 % (11.6-14.6); RBC Distribution Width SD 45.5 fl (35.1-43.9); Red Blood Count 3.98 M/mm3 (4.6-6.2); White Blood Count 5.7 K/mm3 (4.4-11.0)
[2023-08-03 07:32] LABS: International Normalized Ratio 1.1; Prothrombin Time (Protime)PT. 13.9 SECONDS (11.7-14.9)
[2023-08-03 08:00] VITALS: BP 99/68; PULSE 59; RESP 16; TEMP 36.6; O2SAT 96
[2023-08-03 08:14] LABS: AST(SGOT) 12 U/L (15-37); Alanine Aminotransfer ALT/SGPT 25 U/L (16-61); Albumin, Serum 3.1 g/dL (3.2-5.0); Alkaline Phosphatase 47 U/L (45-117); Anion Gap 4 (5-15); BUN 8 mg/dL (7-18); BUN/Creat Ratio 8.2 RATIO (10-20); Bilirubin, Direct 0.16 mg/dL (0.00-0.30); Calcium,Total 8.5 mg/dL (8.5-10.1); Chloride 107 mmol/L (98-107); Creatinine, Serum 0.97 mg/dL (0.70-1.30); EST Glomerular Filtration Rate 87 mL/min (>60); Est Glom Filt Rate - Afr Amer 106 mL/min (>60); Globulin 3.2 g/dL (2.2-4.2); Glucose 103 mg/dL (74-106); Magnesium 2.4 mg/dL (1.6-2.6); Phosphorus 4.4 mg/dL (2.5-4.9); Potassium 3.6 mmol/L (3.5-5.1); Protein, Total 6.3 g/dL (6.4-8.2); Sodium Level 139 mmol/L (136-145); Thyroid Stim Hormone (TSH) 0.55 uIU/mL (0.358-3.74)
[2023-08-03] MEDS: Gabapentin 300 MG Capsule PO ×2 (08:17→17:55)
[2023-08-03] MEDS: Folic Acid 1 MG Tablet PO (08:17)
[2023-08-03] MEDS: Ondansetron 8 MG Tablet PO (08:17)
[2023-08-03] MEDS: Thiamine Hydrochloride 100 MG Tablet PO (08:17)
[2023-08-03] MEDS: Enoxaparin 40 MG/0.4 ML Syringe SC (09:49)
--- NOTE | 2023-08-03 11:57 | ADDICTION ---
This chief writer met with PT to conduct ASAM, MSE, AUDIT assessments and to plan for d/c. PT A+Ox4 and participated actively. All assessments completed and placed in PT's chart. PT plans to f/u with [facility] for follow-up treatment services. PT did not indicate a need for transportation post d/c from [facility].
[2023-08-03 14:00] VITALS: BP 102/62; PULSE 64; RESP 16; TEMP 36.5; O2SAT 96
[2023-08-03 22:09] VITALS: BP 113/77; PULSE 60; RESP 16; TEMP 36.6; O2SAT 97
[2023-08-03] MEDS: Paroxetine 20 MG Tablet PO (22:12)
[2023-08-03] MEDS: QUEtiapine 25 MG Tablet 50 MG PO (22:12)
[2023-08-04 02:36] VITALS: BP 101/67; PULSE 67; RESP 14; TEMP 36.4; O2SAT 97
[2023-08-04] MEDS: Acetaminophen 500 MG Tablet 1000 MG PO ×2 (02:42→22:38)
[2023-08-04] MEDS: Phenobarbital 32.4 MG Tablet 64.7999999999999972 MG PO ×6 (02:42→22:30)
[2023-08-04 06:00] VITALS: BP 99/70; PULSE 60; RESP 15; TEMP 36.4; O2SAT 98
[2023-08-04 08:56] VITALS: BP 103/65; PULSE 74; RESP 18; TEMP 36.3; O2SAT 95
[2023-08-04] MEDS: Gabapentin 300 MG Capsule PO ×2 (09:03→17:55)
[2023-08-04] MEDS: Enoxaparin 40 MG/0.4 ML Syringe SC (09:03)
[2023-08-04] MEDS: Folic Acid 1 MG Tablet PO (09:04)
[2023-08-04] MEDS: Thiamine Hydrochloride 100 MG Tablet PO (09:04)
[2023-08-04] MEDS: Dicyclomine 10 MG Capsule 20 MG PO ×2 (09:04→17:55)
[2023-08-04] MEDS: Ondansetron 8 MG Tablet PO (09:04)
[2023-08-04 14:37] VITALS: BP 102/69; PULSE 62; RESP 18; TEMP 36.7; O2SAT 95
[2023-08-04] MEDS: hydrOXYzine PAM 25 MG Capsule 50 MG PO ×2 (14:39→22:38)
--- NOTE | 2023-08-04 16:17 | PN.HOSP_ITS ---
Reason for Visit Reason for Visit: Diagnoses Alcohol use, unspecified with withdrawal, unspecified (08/02/23) Objective Data Objective Data Vital Signs: Vital Signs Temp Pulse Resp BP Pulse Ox O2 Del Method 98.0 F 62 18 102/69 95 Room Air 08/04/23 14:37 08/04/23 14:37 08/04/23 14:37 08/04/23 14:37 08/04/23 14:37 08/04/23 14:37 Oxygen Delivery Method Room Air Weight: 165 lb 5.547 oz Body Mass Index (BMI) 25.1 Intake & Output: Intake and Output for Last 24 Hours 08/02/23 08/03/23 08/04/23 23:59 23:59 23:59 Intake Total 375 / 750 615 / 615 Balance 375 / 750 615 / 615 Lab / Micro Data 08/03/23 06:35 08/03/23 06:35 Micro: Microbiology 08/02/23 19:40 Nasal Secretion SARS-CoV-2 Antigen (Rapid) - Final Physical Exam Narrative Seen and examined. Patient is still having shivering. Feels anxiety and withdrawal although feeling better than yesterday. No suicidal ideation or delusion. No nightmares. No hallucinations. Physical exam General: Awake, oriented x 3. HEENT: Atraumatic, PERRLA, EOMI, Normocephalic Oral: No Gingival or Mucosal Lesions/ Ulcerations Neck: Supple, No JVD, Negative Carotid Bruits Lungs: Air entry diminished in bilateral lung bases. No crepitation/rhonchi Cardiovascular: Regular rate, Regular Rhythm, Normal S1, Normal S2, No murmurs Abdomen: Bowel Sounds Present, Soft, Non Tender, Non-Distended : No renal angle tenderness. No suprapubic tenderness. Extremities: No edema, Capillary Refill Less than 3 Seconds Skin: No rashes, No breakdown Musculoskeletal: No Tenderness to Palpation of Joints or Extremities Neurological: Cranial nerves II-XII grossly intact, DTR 2+/4. No acute focal neurological deficit. Tremors. Psych/Mental Status: Flat affect. Anxious, restless. Assessment & Plan Assessment/Plan (1) Alcohol withdrawal: PLAN: Plan Mr Amin, 48 year old male is being admitted for acute alcohol withdrawal syndrome and acute benzodiazepine withdrawal syndrome 1. Acute alcohol withdrawal syndrome with history of chronic alcohol use, dependence and tolerance: Heart rate is controlled. Blood pressure 102/69. [facility] Patient on phenobarbital based order set along with other adjunctive medications gabapentin, Bentyl, Vistaril, clonidine, Klonopin as needed for alcohol withdrawal symptom control. Patient is on thiamine and folate acid. CIWA monitor. advertising production manager consulted. Discussed with Carlos. Patient not interested in inpatient rehab. 2. Acute benzodiazepine withdrawal with history of chronic pain and apnea with dependence on heavy doses: Patient on gabapentin and other medication for benzodiazepine withdrawal. Benzodiazepine withdrawal can prolong for 1 to 2 weeks.Continue phenobarb. Did consult. 2. Recurrent falls - PT/ OT consult - Charges/Coding Visit Charges Inpatient E&M: 69943 Subs Hosp L2
[2023-08-04] MEDS: QUEtiapine 25 MG Tablet 50 MG PO (22:30)
[2023-08-04] MEDS: Nicotine Polacrilex 2 MG GUM PO (22:31)
[2023-08-05 03:14] VITALS: BP 114/72; PULSE 59; RESP 14; TEMP 36.6; O2SAT 97
[2023-08-05] MEDS: hydrOXYzine PAM 25 MG Capsule 50 MG PO (03:15)
[2023-08-05] MEDS: Phenobarbital 32.4 MG Tablet 64.7999999999999972 MG PO ×3 (03:15→12:14)
[2023-08-05 08:28] VITALS: BP 109/76; PULSE 50; RESP 16; TEMP 36.6; O2SAT 98
[2023-08-05] MEDS: Thiamine Hydrochloride 100 MG Tablet PO (08:37)
[2023-08-05] MEDS: Folic Acid 1 MG Tablet PO (08:37)
--- NOTE | 2023-08-05 10:53 | DCINST_ITS ---
Discharge Instructions Diet Discharge Diet: No restrictions Activity Discharge Activity: Return to Normal Activity Weight Bearing Status: Weight bearing as tolerated Dressing / Incision Call your doctor if you observe: Fever of 101 or Higher, Coldness, Increased Pain, Numbness or Tingling, Change in Color, Inability to urinate, Inability to have a bowel movement, Using more than 1 pad per hour, Shortness of breath, Dizziness, Fainting spells, Swelling in the ankles, Chest pain, Prolonged hiccupping, Increased palpitations (irregular heartbeat) and Calf discomfort Follow Up Care When: IN 2 WEEKS Test Results: Test results from this visit will be discussed in further detail at your follow- up appointment, if applicable. Discharge Plan Admission Admit Date/Time: 08/02/23 21:51 Attending Provider: Enmanuel Wallace Primary Care Provider: Isabella Lau,Cristin Primary Consulting Providers: Geena Mendoza; Peter Reno Discharge Orders/Prescriptions Prescriptions: New nicotine 14 mg/24 hr Patch 24 Hour 14 mg transdermal DAILY 28 Days Qty: 28 0RF nicotine (polacrilex) 2 mg Gum 2 mg PO Q2H PRN PRN (Reason: Nicotine Craving) Qty: 0 0RF thiamine HCl (vitamin B1) [Vitamin B-1] 100 mg Tablet 100 mg PO DAILYCM Qty: 30 3RF folic acid 1 mg Tablet 1 mg PO DAILY@0800 Qty: 30 2RF Continued quetiapine 50 mg tablet 50 mg PO QHS Patient Comments: TAKE 1 TABLET BY MOUTH AT BEDTIME paroxetine HCl 20 mg tablet 20 mg PO QHS Patient Comments: TAKE 1 TABLET BY MOUTH ONCE DAILY Referrals / Follow Up: Care Physician,No Primary [Primary Care Provider] - Disposition Disposition (needs filled in before D/C Order can be placed): Home, Self Care
--- NOTE | 2023-08-05 10:59 | DS.PCM_ITS ---
Providers Date of Admission: 08/02/23 Date of Discharge: 08/05/23 Primary Care Physician: No Primary Care Phys Reason For Visit: alcohol and drug detox Diagnosis Discharge Diagnosis (1) Alcohol withdrawal: Status: Acute Code(s): F10.939 - Alcohol use, unspecified with withdrawal, unspecified Plan Mr Amin, 48 year old male is being admitted for acute alcohol withdrawal syndrome and acute benzodiazepine withdrawal syndrome 1. Acute alcohol withdrawal syndrome with history of chronic alcohol use, dependence and tolerance: Heart rate is controlled. Blood pressure 102/69. Patient is being admitted to MedSurg floor. Patient on phenobarbital based order set along with other adjunctive medications gabapentin, Bentyl, Vistaril, clonidine, Klonopin as needed for alcohol withdrawal symptom control. Patient is on thiamine and folate acid. CIWA monitor. decommissioning well site manager consulted. Discussed with Carlos. Patient not interested in inpatient rehab. 08/05: Complained of mild anxiety. CIWA score is 3. Heart rate 50/min. Patient wants to go home. Patient wants to pursue IOP, intensive outpatient monitoring. Discussed with medical case worker 180. Prescriptions given for thiamine, folic acid and nicotine. 2. Acute benzodiazepine withdrawal with history of chronic pain and apnea with dependence on heavy doses: Patient on gabapentin and other medication for benzodiazepine withdrawal. Benzodiazepine withdrawal can prolong for 1 to 2 weeks.Continue phenobarb. 2. Recurrent falls - PT/ OT consult - Discharge medication reconciliation done. Discharge follow-up instructions completed. Discharge process discussed with the patient and all questions were answered to patient's satisfaction. Follow with PCP in 1 to 2 weeks Total time spent, exact 35 minutes on discharge meds reconciliation, examination, coordination of care with nurses and ancillary staff, review of imaging and blood test and discussion with the patient on follow-up instructions. Medications at Discharge Home Medications paroxetine HCl 20 mg tablet 20 mg PO QHS 08/02/23 quetiapine 50 mg tablet 50 mg PO QHS 08/02/23 folic acid 1 mg tablet 1 mg PO DAILY@0800 #30 tabs 08/05/23 nicotine (polacrilex) 2 mg gum 2 mg PO Q2H PRN PRN Nicotine Craving #0 ea 08/05/23 nicotine 14 mg/24 hr daily transdermal patch 14 mg transdermal DAILY 28 days #28 ea 08/05/23 thiamine HCl (vitamin B1) 100 mg tablet (Vitamin B-1) 100 mg PO DAILYCM #30 tabs 08/05/23 Physical Exam Narrative Seen and examined. Patient is still having shivering. Feels anxiety and withdrawal although feeling better than yesterday. No suicidal ideation or delusion. No nightmares. No hallucinations. Physical exam General: Awake, oriented x 3. HEENT: Atraumatic, PERRLA, EOMI, Normocephalic Oral: No Gingival or Mucosal Lesions/ Ulcerations Neck: Supple, No JVD, Negative Carotid Bruits Lungs: Air entry diminished in bilateral lung bases. No crepitation/rhonchi Cardiovascular: Regular rate, Regular Rhythm, Normal S1, Normal S2, No murmurs Abdomen: Bowel Sounds Present, Soft, Non Tender, Non-Distended : No renal angle tenderness. No suprapubic tenderness. Extremities: No edema, Capillary Refill Less than 3 Seconds Skin: No rashes, No breakdown Musculoskeletal: No Tenderness to Palpation of Joints or Extremities Neurological: Cranial nerves II-XII grossly intact, DTR 2+/4. No acute focal neurological deficit. Tremors. Psych/Mental Status: Flat affect. Anxious, restless. Weight / BMI Weight Weight: 165 lb 5.547 oz Body Mass Index (BMI) 25.1 ABG / Lab / Microbiology Data 08/03/23 06:35 08/03/23 06:35 Microbiology: Microbiology 08/02/23 19:40 Nasal Secretion SARS-CoV-2 Antigen (Rapid) - Final D/C Instructions Discharge Diet: No restrictions Weight Bearing Status: Weight bearing as tolerated Call your doctor if you observe: Fever of 101 or Higher, Coldness, Increased Pain, Numbness or Tingling, Change in Color, Inability to urinate, Inability to have a bowel movement, Using more than 1 pad per hour, Shortness of breath, Dizziness, Fainting spells, Swelling in the ankles, Chest pain, Prolonged hiccupping, Increased palpitations (irregular heartbeat) and Calf discomfort When: IN 2 WEEKS Meaningful Use Info Meaningful Use Diagnoses (Choose all that apply): None applicable Discharge Plan Admission Admit Date/Time: 08/02/23 21:51 Attending Provider: Enmanuel Wallace Primary Care Provider: Care Physician,No Primary Consulting Providers: Geena Mendoza; Peter Reno Discharge Orders/Prescriptions Prescriptions: New nicotine 14 mg/24 hr Patch 24 Hour 14 mg transdermal DAILY 28 Days Qty: 28 0RF nicotine (polacrilex) 2 mg Gum 2 mg PO Q2H PRN PRN (Reason: Nicotine Craving) Qty: 0 0RF thiamine HCl (vitamin B1) [Vitamin B-1] 100 mg Tablet 100 mg PO DAILYCM Qty: 30 3RF folic acid 1 mg Tablet 1 mg PO DAILY@0800 Qty: 30 2RF Continued quetiapine 50 mg tablet 50 mg PO QHS Patient Comments: TAKE 1 TABLET BY MOUTH AT BEDTIME paroxetine HCl 20 mg tablet 20 mg PO QHS Patient Comments: TAKE 1 TABLET BY MOUTH ONCE DAILY Referrals / Follow Up: Care Physician,No Primary [Primary Care Provider] - Disposition Disposition (needs filled in before D/C Order can be placed): Home, Self Care Charges/Coding Visit Charges Inpatient E&M: 64836 Disch Hosp >30min
--- NOTE | 2023-08-05 14:25 | PHA.DC.MC.R ---
Pharmacy [facility] has performed discharge medication reconciliation and counseling for this patient. The patient's discharge medication list was reviewed for discrepancies and discrepancies were resolved. The patient was counseled on the following discharge medications and changes in medications for homegoing were reviewed. 1. NICOTINE PATCH/ GUM 2. FOLIC ACID 3. THIAMINE The Reason for Use, instructions for use, and potential side effects were reviewed for all new medications. The patient's questions regarding all of their medications were answered. The patient was able to verbally demonstrate an understanding of their discharge medications. Medications at Discharge Home Medications paroxetine HCl 20 mg tablet 20 mg PO QHS 08/02/23 quetiapine 50 mg tablet 50 mg PO QHS 08/02/23 folic acid 1 mg tablet 1 mg PO DAILY@0800 #30 tabs 08/05/23 nicotine (polacrilex) 2 mg gum 2 mg PO Q2H PRN PRN Nicotine Craving #0 ea 08/05/23 nicotine 14 mg/24 hr daily transdermal patch 14 mg transdermal DAILY 28 days #28 ea 08/05/23 thiamine HCl (vitamin B1) 100 mg tablet (Vitamin B-1) 100 mg PO DAILYCM #30 tabs 08/05/23
== END 2023-08-05 13:29 | disposition home or self-care (01) | DRG 775 ==
LOC: ED 21:33 → MS3 21:51
PROVIDERS: Admitting Provider Internal Medicine; Emergency Provider Emergency Medicine; Visit Provider Internal Medicine
DX: F10.239 Alcohol dependence with withdrawal, unspecified (principal); E05.00 Thyrotoxicosis with diffuse goiter without thyrotoxic crisis or storm; F13.239 Sedative, hypnotic or anxiolytic dependence with withdrawal, unspecified; F17.210 Nicotine dependence, cigarettes, uncomplicated; S01.81XA Laceration without foreign body of other part of head, initial encounter; W19.XXXA Unspecified fall, initial encounter; R29.6 Repeated falls; Y92.231 Patient bathroom in hospital as the place of occurrence of the external cause; Y90.9 Presence of alcohol in blood, level not specified
CPT/HCPCS: 36415; 70450; 80048; 80053; 80307; 80320; 82248; 82962; 83735; 84100; 84443; 85025; 85610; 87811; 93005; 99284; A4216; G0480